=== PATIENT | male | born 1970 | race Caucasian/White ===

== ENCOUNTER 2019-04-17 07:26 | Emergency (ER) | payer BC ==
[2019-04-17 07:37] VITALS: BP 161/107
--- NOTE | 2019-04-17 07:52 | UC ---
Eye Complaint HPI - HPI Summary HPI Summary: left eye redness and swelling x 1 day woke up this morning with left eye swelling, itchy, no change in vision , no eye pain , clear discharge find a cat heir in his left eye last night, no fb sensation , no cold symptoms - History of Current Complaint Chief Complaint: UCEye Stated Complaint: L EYE COMP Time Seen by Provider: 04/17/19 07:40 Hx Obtained From: Patient Onset/Duration: Gradual Onset, Lasting Days - 1, Still Present Timing: Constant Severity Initially: Moderate Severity Currently: Moderate Pain Intensity: 0 Location of Injury: Conjunctiva - left Aggravating Factor(s): Nothing Alleviating Factor(s): Nothing Associated Signs And Symptoms: Positive: Drainage (Clear), Swelling. Negative: Photophobia, Drainage (Purulent), Vision Impairment Bilateral, Vision Impairment Right, Vision Impairment Left, Fever - Allergies/Home Medications Allergies/Adverse Reactions: Allergies Allergy/AdvReac Type Severity Reaction Status Date / Time Penicillins Allergy Hives Verified 04/17/19 07:38 Home Medications: Home Medications diphenhydrAMINE HCl [Benadryl Allergy] 25 mg PO Q6HR PRN 04/17/19 [History Confirmed 04/17/19] PMH/Surg Hx/FS Hx/Imm Hx Previously Healthy: Yes - Surgical History Surgical History: None - Family History Known Family History: Positive: Hypertension - Social History Alcohol Use: Occasionally Substance Use Type: None Smoking Status (MU): Never Smoked Tobacco Review of Systems All Other Systems Reviewed And Are Negative: Yes Constitutional: Positive: Negative Skin: Positive: Negative Eyes: Positive: Drainage, Eye Redness. Negative: Blurred Vision, Diplopia, Photophobia ENT: Positive: Negative Respiratory: Positive: Negative Is Patient Immunocompromised?: No Physical Exam Triage Information Reviewed: Yes Appearance: Well-Appearing, No Pain Distress, Well-Nourished Vital Signs: Initial Vital Signs Temp 97.2 F 04/17/19 07:33 Pulse 67 04/17/19 07:33 Resp 14 04/17/19 07:33 BP 161/107 04/17/19 07:33 Pulse Ox 100 04/17/19 07:33 Vital Signs Reviewed: Yes Eye Exam: Normal Eyes: Positive: Conjunctiva Inflamed - left, Discharge - clear discharge left eye, Other: - swollen sclara ENT: Positive: Normal ENT inspection, Hearing grossly normal, Pharynx normal Neck: Positive: Supple, Nontender, No Lymphadenopathy Respiratory: Positive: Chest non-tender, Lungs clear, Normal breath sounds Cardiovascular: Positive: RRR, No Murmur, Pulses Normal Eye Complaint Course/Dx - Differential Dx/Diagnosis Provider Diagnosis: Allergic conjunctivitis, left eye Discharge ED - Sign-Out/Discharge Documenting (check all that apply): Patient Departure All imaging exams completed and their final reports reviewed: No Studies - Discharge Plan Condition: Stable Disposition: HOME Prescriptions: Tobramycin/Dexameth OPTH.SUSP* [Tobradex 0.3-0.1%*] 1 drop LEFT EYE Q4H #1 btl Patient Education Materials: Conjunctivitis (ED) Referrals: No Primary Care Phys,NOPCP [Primary Care Provider] - If Needed Additional Instructions: allergic conjunctivitis , eye drops with steroid for 5 to 7 days - Billing Disposition and Condition Condition: STABLE Disposition: Home
== END 2019-04-17 07:53 | disposition home or self-care (01) ==
LOC: UCCORT 07:26
DX: H10.12 Acute atopic conjunctivitis, left eye (principal); Z88.0 Allergy status to penicillin
CPT/HCPCS: 99202; G0463